=== PATIENT | male | born 1980 | race Caucasian/White ===

== ENCOUNTER 2018-11-19 20:40 | Emergency (ER) | payer OTHER ==
[2018-11-19] MEDS: KETOROLAC 15 MG INJ IM (21:20)
== END 2018-11-19 23:34 | disposition home or self-care (01) ==
LOC: E/R 20:40
DX: S93.401A Sprain of unspecified ligament of right ankle, initial encounter (principal); R60.0 Localized edema; R00.0 Tachycardia, unspecified; V19.9XXA Pedal cyclist (driver) (passenger) injured in unspecified traffic accident, initial encounter
CPT/HCPCS: 73610; 73610-RT; 96372; 99284-25